=== PATIENT | female | born 1965 | race Hispanic/Latino ===

== ENCOUNTER 2017-06-16 17:44 | Emergency (ER) | payer OTHER ==
[2017-06-16 17:56] VITALS: BP 133/81; PULSE 105; RESP 20; TEMP 98.2; O2SAT 94
--- NOTE | 2017-06-21 11:14 | C.PDOC ---
Time Seen by Provider: 06/16/17 18:06 Chief Complaint (Nursing): Abdominal Pain Past Medical History Vital Signs: Last Vital Signs Temp 98.2 F 06/16/17 17:52 Pulse 105 H 06/16/17 17:52 Resp 20 06/16/17 17:52 BP 133/81 06/16/17 17:52 Pulse Ox 94 L 06/16/17 17:52 - Medical History PMH: Anxiety, Bipolar Disorder, Depression, HTN - Social History Hx Alcohol Use: No Hx Substance Use: No - Immunization History Hx Tetanus Toxoid Vaccination: No Hx Influenza Vaccination: No Hx Pneumococcal Vaccination: No ED Course And Treatment O2 Sat by Pulse Oximetry: 94 Disposition - Disposition Disposition: LEFT W/O BEING SEEN - ER ONLY
== END 2017-06-16 18:06 | disposition left against medical advice (07) ==
LOC: C.ER 17:44
DX: Z02.89 Encounter for other administrative examinations (principal); R10.30 Lower abdominal pain, unspecified